=== PATIENT | male | born 1980 | race Caucasian/White ===

== ENCOUNTER 2024-05-02 22:56 | Emergency (ER) | payer MEDICAID, OTHER ==
[~2024-05-02] VITALS: Ht 177.8 cm; Wt 97.7 kg
[~2024-05-02 22:56] MED LIST: AMLO-257 PO; BUPR-514 PO; GABA-1216 PO; METF-1211 PO; PALI6TAB15 PO; TRAZ150T80 PO
[2024-05-02 23:25] VITALS: TEMP 98.2
[2024-05-03] MEDS: AmLODIPine BESYLATE 10 MG TABLET PO ONE (02:14)
[2024-05-03 02:33] LABS: BASOPHILS % (AUTO) 0.9 % (0.0-2.0); EOSINOPHILS % (AUTO) 2.9 % (1.0-6.0); HEMATOCRIT 36.3 % (41-53); HEMOGLOBIN 12.1 g/dL (13.5-17.5); LYMPHOCYTES # (AUTO) 2.8 K/uL (1.0-4.8); LYMPHOCYTES % (AUTO) 22.2 % (22.0-44.0); MEAN CORPUSCULAR HEMOGLOBIN 25.2 pg (26.0-34.0); MEAN CORPUSCULAR HGB CONC 33.3 G/dL (31.0-37.0); MEAN CORPUSCULAR VOLUME 76 fL (80-100); MONOCYTES # (AUTO) 1.4 K/uL (0.1-1.0); MONOCYTES % (AUTO) 11.2 % (2.0-9.0); NEUTROPHILS % (AUTO) 62.8 % (40.0-70.0); PLATELET COUNT (AUTO) 341 K/uL (150-450); RED BLOOD CELL COUNT(AUTO) 4.78 MIL/uL (4.50-5.90); RED CELL DISTRIBUTION WIDTH 16.1 % (11.5-14.5); WHITE BLOOD COUNT (AUTO) 12.8 K/uL (4.5-11.0)
[2024-05-03 02:34] LABS: ANION GAP 9 mmol/L (8-16); CALCIUM, TOTAL 8.8 mg/dL (8.8-10.5); CARBON DIOXIDE 28 mmol/L (22-29); CHLORIDE 98 mmol/L (98-107); CREATININE 1.18 mg/dL (0.60-1.30); GLOMERULAR FILTR. RATE CALC > 60 mL/min (>60); GLUCOSE,RANDOM 153 mg/dL (70-110); POTASSIUM 3.8 mmol/L (3.5-5.1); SODIUM SERUM 135 mmol/L (136-145); UREA NITROGEN, BLOOD 15 mg/dL (7-18)
[2024-05-03 02:42] LABS: TROPONIN I-HIGH SENSITIVITY 5 ng/L (<76)
[2024-05-03 02:43] LABS: ALCOHOL, BLOOD (SERUM) < 3 mg/dL (0-10)
[2024-05-03 02:46] LABS: B-TYPE NATRIURETIC PEPTIDE < 5 pg/mL (0-100)
[2024-05-03 03:06] LABS: COVID AG,FIA SOURCE NASAL SWAB
[2024-05-03 03:15] LABS: SARS-COV2 (COVID) ANTIGEN,FIA Negative (Negative)
[2024-05-03 04:23] VITALS: BP 165/95; PULSE 95; RESP 18; O2SAT 99
[2024-05-03] MEDS ORDERED: PNEUMOCOCCAL VACCINE POLYVALENT 0.5 ML SYRINGE [PPSV23] IM. ONE (06:00)
[2024-05-03] MEDS ORDERED: INFLUENZA VIRUS VACCINE TVS (6MO+) 2024-25/PF 45 MCG/0.5 ML SYRINGE IM. ONE (06:00)
[2024-05-03] MEDS ORDERED: MAG HYDROX/ALUMINUM HYD/SIMETH ES 30 ML SUSPENSION UDCUP PO PRN (11:00)
[2024-05-03] MEDS ORDERED: ZOLPIDEM TARTRATE 10 MG TABLET PO PRN (11:00)
[2024-05-03] MEDS ORDERED: ACETAMINOPHEN 325 MG TABLET PO PRN (11:00)
[2024-05-03] MEDS ORDERED: MAGNESIUM HYDROXIDE SUSPENSION 30 ML UDCUP PO PRN (11:00)
[2024-05-03] MEDS ORDERED: HALOPERIDOL 5 MG TABLET PO PRN (11:00)
[2024-05-03] MEDS ORDERED: LORazepam 2 MG TABLET PO PRN (11:00)
[2024-05-03] MEDS ORDERED: LOPERAMIDE HCL 2 MG CAPSULE PO PRN (11:00)
== END 2024-05-03 06:11 | disposition short-term general hospital (02) ==
LOC: EMS 22:59 → B3A 05-03 04:43 → UNDOADMIN 05-03 04:43
DX: I10 Essential (primary) hypertension (principal); F25.0 Schizoaffective disorder, bipolar type; E11.65 Type 2 diabetes mellitus with hyperglycemia; Z20.822 Contact with and (suspected) exposure to COVID-19
CPT/HCPCS: 99285; 87426; 80048; 83880; 84484; 85025; 36415; G0480